=== PATIENT | male | born 1970 | race Caucasian/White ===

== ENCOUNTER 2017-01-05 10:05 | Emergency (ER) | payer OTHER ==
[~2017-01-05] VITALS: Ht 180.3 cm; Wt 90.0 kg
[~2017-01-05 10:05] MED LIST: HYDR28OI2 TP
[2017-01-05 10:09] VITALS: Ht 180.3 cm; Wt 90.0 kg
[2017-01-05] MEDS ORDERED: IMIQ1CRE14 TOP (10:31)
--- NOTE | 2017-01-05 10:35 | ERD ---
ER Documentation Chief Complaint Date/Time DATE: 01/05/17 TIME: 10:33 Chief Complaint WARTS ON PENIS X1MTH, CREAM GIVEN BY MD NOT WORKING HPI This 38-year-old male complains of genital warts worsening over the last 2 months. He was prescribed 2 weeks ago but states that is not working. Patient states that he started noticing the warts after he found that his spouse was unfaithful. ROS All systems reviewed and are negative except as per history of present illness. Medications Home Meds Active Scripts Imiquimod (Imiquimod) 5% Cream.pack, 1 PACKET TOP 3X/ WEEK for 30 Days, EA Apply to lesions at night and wash off in morning 3 times a week. Avoid normal skin Prov:NUBIA BRITT MD 01/05/17 Hydrocortisone Acetate (Hydrocortisone) 28 Gm Oint...g., 28 GM TP TID, #1 Prov:IZAIAH CAMACHO MD 01/23/16 Allergies Allergies: Coded Allergies: No Known Allergy (Unverified , 01/23/16) PMhx/Soc History of Surgery: Yes (BILAT LEGS) Anesthesia Reaction: No Hx Neurological Disorder: No Hx Respiratory Disorders: No Hx Cardiac Disorders: No Hx Psychiatric Problems: No Hx Miscellaneous Medical Probl: Yes (DIABETES MELLITUS) Hx Alcohol Use: No Hx Substance Use: No Hx Tobacco Use: No Smoking Status: Never smoker Physical Exam Vitals Vital Signs Date Time Temp Pulse Resp B/P Pulse Ox O2 Delivery O2 Flow Rate FiO2 01/05/17 10:09 96.8 89 19 151/88 98 Physical Exam Const: [] Alert, [id number] per Head: Atraumatic Eyes: Normal Conjunctiva ENT: Normal External Ears, Nose and Mouth. Neck: Full range of motion..~ No meningismus. Resp: Clear to auscultation bilaterally Cardio: Regular rate and rhythm, no murmurs Abd: Soft, non tender, non distended. Normal bowel sounds Skin: No petechiae or rashes. Diffuse condyloma of the distal foreskin and glans. Back: No midline or flank tenderness Ext: No cyanosis, or edema Neur: Awake and alert Psych: Normal Mood and Affect Procedures/MDM Patient has signs and symptoms of condyloma acuminata. Patient will be discharged home with instructions to continue on diet. Patient was advised he may need cryotherapy or cauterization via an STD clinic or urology. Patient was counseled that there is no further treatment here in the ED. Patient is advised to otherwise recheck for fevers, vomiting, shortness of the chest pain or with STD clinic or urology as directed. Show evidence of cellulitis, penile discharge or additional complaints related to presumed HPV. Departure Diagnosis: Primary Impression: Condyloma acuminata Condition: Stable Patient Instructions: Treating Genital Warts, Warts, Genital Referrals: MAUREEN PADILLA MD, RICHARD G. MD [facility] Hours: 8:00 am - 5:00 pm Additional Instructions: Recommend treatment with freezing or chemical cauterization or additional treatment in clinics. May need authorization from primary doctor for specialist visit. Okay to continue Berna. NUBIA BRITT MD Jan 05, 2017 10:35
== END 2017-01-05 10:40 | disposition home or self-care (01) ==
LOC: FTE 10:05
DX: A63.0 Anogenital (venereal) warts (principal); E11.9 Type 2 diabetes mellitus without complications
CPT/HCPCS: 99283

== ENCOUNTER 2017-03-24 04:37 | Emergency (ER) | payer OTHER ==
[~2017-03-24] VITALS: Ht 167.6 cm; Wt 94.0 kg
[~2017-03-24 04:37] MED LIST changes: +IMIQ1CRE14 TOP
[2017-03-24 04:43] VITALS: Ht 167.6 cm; Wt 94.0 kg
[2017-03-24] MEDS ORDERED: CEFAZOLIN 1 GM INJ IM ONE (05:00)
[2017-03-24] MEDS ORDERED: SULF1TAB31 PO (05:21)
[2017-03-24] MEDS ORDERED: CEPH-443 PO (05:21)
[2017-03-24] MEDS ORDERED: IBUP-1542 PO (05:21)
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
== END 2017-03-24 05:45 | disposition home or self-care (01) ==
LOC: FTE 04:37
DX: S21.95XA Open bite of unspecified part of thorax, initial encounter (principal); E11.9 Type 2 diabetes mellitus without complications; W50.3XXA Accidental bite by another person, initial encounter; Y92.9 Unspecified place or not applicable
CPT/HCPCS: 96372; J0690; Z7502

== ENCOUNTER 2019-03-13 13:37 | Emergency (ER) | payer OTHER ==
[~2019-03-13] VITALS: Ht 180.3 cm; Wt 83.0 kg
[~2019-03-13 13:37] MED LIST changes: +GLIM4TAB PO; -HYDR28OI2 TP; -IMIQ1CRE14 TOP; +MECL12.574 PO; +METF100010 PO
[2019-03-13 13:48] VITALS: Ht 180.3 cm; Wt 83.0 kg
[2019-03-13] MEDS ORDERED: MECLIZINE 12.5 MG TAB PO ONE (16:30)
[2019-03-13] MEDS ORDERED: SOD CHLORIDE 0.9% 1,000 ML IV ONE (16:30)
[2019-03-13 18:53] VITALS: BP 138/99; PULSE 61; RESP 18
== END 2019-03-13 18:54 | disposition home or self-care (01) ==
LOC: FTE 13:37
DX: E11.65 Type 2 diabetes mellitus with hyperglycemia (principal); Z79.84 Long term (current) use of oral hypoglycemic drugs
CPT/HCPCS: 36415; 80053; 81003; 82962; 85025; 93005; 96360; J7030; Z7502; Z7610